=== PATIENT | female | born 1990 | race Hispanic/Latino ===

== ENCOUNTER 2020-04-21 21:01 | Emergency (ER) | payer MEDICAID, OTHER ==
[~2020-04-21 21:01] MED LIST: ACET1TAB12 PO; FERR-82 PO; PREN1TAB89 PO
[2020-04-21] MEDS ORDERED: SODIUM CHLORIDE 0.9% 1000ML 1,000 ML IV ONE (21:43)
[2020-04-21] MEDS ORDERED: KETOROLAC TROMETHAMINE 15MG/ML ONE (21:52)
== END 2020-04-21 23:15 | disposition home or self-care (01) ==
LOC: EDH 21:01
DX: U07.1 COVID-19 (principal); G44.209 Tension-type headache, unspecified, not intractable
CPT/HCPCS: 81025; 96374; 99283; J1885; J7030; U0003; 36415

== ENCOUNTER 2021-04-19 00:30 | Emergency (ER) | payer MEDICAID, OTHER ==
[~2021-04-19] VITALS: Ht 160 cm; Wt 99.8 kg
[2021-04-19 00:35] VITALS: BP 142/88
[2021-04-19] MEDS ORDERED: MELO7.5T12 PO (01:13)
[2021-04-19] MEDS ORDERED: CYCL10TA7 PO (01:13)
[2021-04-19] MEDS ORDERED: KETOROLAC 60 MG VIAL (30MG/ML) IM ONE (01:30)
== END 2021-04-19 01:52 | disposition home or self-care (01) ==
LOC: EDH 00:30
DX: G44.209 Tension-type headache, unspecified, not intractable (principal); M62.830 Muscle spasm of back; H92.03 Otalgia, bilateral; M54.2 Cervicalgia; D64.9 Anemia, unspecified; Z79.899 Other long term (current) drug therapy
CPT/HCPCS: 96372; J1885

== ENCOUNTER 2021-06-06 18:40 | Emergency (ER) | payer MEDICAID ==
[~2021-06-06] VITALS: Ht 165.1 cm; Wt 113.4 kg
[~2021-06-06 18:40] MED LIST changes: +CYCL10TA7 PO; +MELO7.5T12 PO
[2021-06-06] MEDS ORDERED: ACETAMINOPHEN WITH CODEINE 1 TAB TAB PO ONE (21:00)
[2021-06-06] MEDS ORDERED: CEFTRIAXONE 1G VIAL IM ONE (21:00)
[2021-06-06] MEDS ORDERED: LIDOCAINE HCL-MPF 1% 2ML VIAL ONE (21:03)
[2021-06-06] MEDS ORDERED: CORTSOL AD (21:41)
[2021-06-06] MEDS ORDERED: AMOX-429 PO (21:41)
[2021-06-06] MEDS ORDERED: IBUP-1552 PO (21:41)
[2021-06-06 22:01] VITALS: BP 149/100
== END 2021-06-06 22:12 | disposition home or self-care (01) ==
LOC: EDH 18:40
DX: H60.91 Unspecified otitis externa, right ear (principal); H66.91 Otitis media, unspecified, right ear; E66.01 Morbid (severe) obesity due to excess calories; Z79.1 Long term (current) use of non-steroidal anti-inflammatories (NSAID); Z88.1 Allergy status to other antibiotic agents; Z68.41 Body mass index [BMI] 40.0-44.9, adult
CPT/HCPCS: 82948; 96372; 99283; J0696; J3490

== ENCOUNTER 2021-10-03 14:46 | Emergency (ER) | payer MEDICAID ==
[~2021-10-03] VITALS: Ht 165.1 cm; Wt 131.5 kg
[~2021-10-03 14:46] MED LIST changes: +AMOX-429 PO; +CORTSOL AD; +CYCL-309 PO; -CYCL10TA7 PO; +IBUP-1552 PO
[2021-10-03 14:53] VITALS: BP 140/94
[2021-10-03] MEDS ORDERED: ACETAMINOPHEN WITH CODEINE 1 TAB TAB PO ONE (18:00)
[2021-10-03] MEDS ORDERED: SILVER SULFADIAZINE CREAM 400 GM TP SCH (18:00)
[2021-10-03] MEDS ORDERED: KETOROLAC 30MG VIAL (30MG/ML) IM ONE (18:00)
[2021-10-03] MEDS ORDERED: ACET1TAB25 PO (18:10)
[2021-10-03] MEDS ORDERED: MUPI15CR12 TP (18:10)
[2021-10-03] MEDS ORDERED: SILV20CR11 TP (18:10)
[2021-10-03] MEDS ORDERED: SILVER SULFADIAZINE CREAM 50 GM TP SCH (19:00)
== END 2021-10-03 18:55 | disposition home or self-care (01) ==
LOC: EDH 14:46
DX: T21.22XA Burn of second degree of abdominal wall, initial encounter (principal); T22.111A Burn of first degree of right forearm, initial encounter; T31.0 Burns involving less than 10% of body surface; E66.01 Morbid (severe) obesity due to excess calories; Z88.1 Allergy status to other antibiotic agents; Z79.1 Long term (current) use of non-steroidal anti-inflammatories (NSAID); Z68.42 Body mass index [BMI] 45.0-49.9, adult; X12.XXXA Contact with other hot fluids, initial encounter; Y93.G3 Activity, cooking and baking; Y92.89 Other specified places as the place of occurrence of the external cause; Y99.8 Other external cause status
CPT/HCPCS: 16020; 96372; 99283; J1885

== ENCOUNTER 2022-01-31 20:22 | Emergency (ER) | payer MEDICAID ==
[~2022-01-31] VITALS: Ht 165.1 cm; Wt 130.2 kg
[~2022-01-31 20:22] MED LIST changes: +ACET-2079 PO; +MUPI15CR12 TP; +SILV20CR11 TP
[2022-01-31 21:52] LABS: APPEARANCE,URINE Cloudy (CLEAR); BILIRUBIN,URINE Negative (NEGATIVE); COLOR,URINE Yellow (YELLOW); GLUCOSE, URINE (UA) Negative (NEGATIVE); KETONES,URINE Negative (NEGATIVE); LEUKOCYTE ESTERASE ,URINE Small (NEGATIVE); NITRATE,URINE Negative (NEGATIVE); OCCULT BLOOD,URINE Large (NEGATIVE); PH,URINE 5.5 (5.0-8.0); PROTEIN,URINE Negative (NEGATIVE); UROBILINOGEN,URINE 0.2 mg/dL (0.2-1.0)
[2022-01-31 21:57] LABS: HCG,QUAL RESULT NEGATIVE (NEGATIVE)
[2022-01-31] MEDS ORDERED: KETOROLAC 30MG VIAL (30MG/ML) IVP SCH (22:00)
[2022-01-31] MEDS ORDERED: 0.9% NACL 500ML IV.SOLN 500 ML IV SCH (22:00)
[2022-01-31] MEDS ORDERED: CYCLOBENZAPRINE HCL 10 MG TABLET PO SCH (22:00)
[2022-01-31] MEDS ORDERED: PROMETHAZINE HCL 25 MG/ML 1ML AMPULE IM SCH (22:00)
[2022-01-31 22:05] LABS: BACTERIA,URINE Few /HPF (None Seen); RBC,URINE None Seen /HPF (0-1)
[2022-01-31 22:06] LABS: AMORPHOUS SEDIMENT,UR Few /LPF (None Seen)
[2022-01-31 22:07] LABS: EOSINOPHILS % (AUTO) 1.9 % (0.0-8.0); LYMPHOCYTES % (AUTO) 28.5 % (21.0-51.0); MEAN CORPUSCULAR HEMOGLOBIN 25.2 pg (27.0-33.0); MEAN CORPUSCULAR HGB CONC 31.3 g/dL (32.0-36.0); MEAN CORPUSCULAR VOLUME 80.3 fL (79-99); MONOCYTES % (AUTO) 7.2 % (3.0-13.0); NEUTROPHILS % (AUTO) 61.2 % (40.0-77.0); PLATELET COUNT (AUTO) 192 K/uL (130-400); RED BLOOD CELL COUNT(AUTO) 4.73 MIL/uL (4.00-5.50); RED CELL DISTRIBUTION WIDTH 13.2 % (11.0-15.5); WHITE BLOOD COUNT (AUTO) 4.1 K/uL (4.8-10.8)
[2022-01-31 22:22] LABS: CREATININE 0.9 mg/dL (0.5-1.5); POTASSIUM 3.6 mmol/L (3.5-5.1)
[2022-01-31 22:28] LABS: ALBUMIN 3.5 g/dL (3.5-5.0); BILIRUBIN,TOTAL 0.2 mg/dL (0.2-1.0); TOTAL PROTEIN, SERUM 7.4 g/dL (6.0-8.3)
[2022-01-31 22:30] VITALS: BP 131/68
[2022-01-31] MEDS ORDERED: NAPR-1180 PO (22:46)
[2022-01-31] MEDS ORDERED: CYCL10TA16 PO (22:46)
[2022-01-31] MEDS ORDERED: POTASSIUM BICARB/CIT AC 25 MEQ TABLET.EFF PO ONE (23:00)
== END 2022-01-31 22:57 | disposition home or self-care (01) ==
LOC: EDH 20:22
DX: G44.209 Tension-type headache, unspecified, not intractable (principal); E66.9 Obesity, unspecified; Z68.42 Body mass index [BMI] 45.0-49.9, adult; Z88.8 Allergy status to other drugs, medicaments and biological substances; Z88.1 Allergy status to other antibiotic agents; Z79.899 Other long term (current) drug therapy; Z98.890 Other specified postprocedural states
CPT/HCPCS: 36415; 80053; 81001; 81025; 85025; 96372; 96374; 99284; J1885; J2550; J7040

== ENCOUNTER 2022-03-26 23:50 | Emergency (ER) | payer MEDICAID ==
[~2022-03-26] VITALS: Ht 165.1 cm; Wt 131.1 kg
[~2022-03-26 23:50] MED LIST changes: +CYCL10TA16 PO; +NAPR-1180 PO
[2022-03-27 01:05] VITALS: BP 141/71
[2022-03-27] MEDS ORDERED: NAPR500T6 PO (01:26)
[2022-03-27] MEDS ORDERED: KETOROLAC 60 MG VIAL (30MG/ML) IM ONE (01:30)
== END 2022-03-27 01:38 | disposition home or self-care (01) ==
LOC: EDH 23:50
DX: M94.0 Chondrocostal junction syndrome [Tietze] (principal); R07.89 Other chest pain; Z20.822 Contact with and (suspected) exposure to COVID-19; Z88.8 Allergy status to other drugs, medicaments and biological substances; Z88.1 Allergy status to other antibiotic agents; Z79.899 Other long term (current) drug therapy; Z98.890 Other specified postprocedural states
CPT/HCPCS: 87635; 87804 ×2; 93005; 96372; 99284; C9803; J1885

== ENCOUNTER 2022-04-16 22:37 | Emergency (ER) | payer MEDICAID ==
[~2022-04-16] VITALS: Ht 165.1 cm; Wt 129.3 kg
[~2022-04-16 22:37] MED LIST changes: +NAPR500T6 PO
[2022-04-16] MEDS ORDERED: PROMETHAZINE HCL 25 MG/ML 1ML AMPULE IVPB SCH (23:00)
[2022-04-16] MEDS ORDERED: KETOROLAC 30MG VIAL (30MG/ML) IVP ONE (23:00)
[2022-04-16] MEDS ORDERED: CYCLOBENZAPRINE HCL 10 MG TABLET PO ONE (23:00)
[2022-04-16] MEDS ORDERED: 0.9% NACL 500ML IV.SOLN 500 ML IV SCH (23:30)
[2022-04-16 23:32] LABS: APPEARANCE,URINE CLEAR (CLEAR); BILIRUBIN,URINE NEGATIVE (NEGATIVE); COLOR,URINE YELLOW (YELLOW); GLUCOSE, URINE (UA) NEGATIVE (NEGATIVE); KETONES,URINE NEGATIVE (NEGATIVE); LEUKOCYTE ESTERASE ,URINE NEGATIVE (NEGATIVE); NITRATE,URINE NEGATIVE (NEGATIVE); OCCULT BLOOD,URINE NEGATIVE (NEGATIVE); PH,URINE 5.5 (5.0-8.0); PROTEIN,URINE NEGATIVE (NEGATIVE); UROBILINOGEN,URINE 0.2 mg/dL (0.2-1.0)
[2022-04-16 23:32] LABS: BASOPHILS % (AUTO) 0.7 % (0.0-5.0); EOSINOPHILS % (AUTO) 1.3 % (0.0-8.0); HEMATOCRIT 38.5 % (36-48); LYMPHOCYTES % (AUTO) 24.6 % (21.0-51.0); MEAN CORPUSCULAR HEMOGLOBIN 24.6 pg (27.0-33.0); MEAN CORPUSCULAR HGB CONC 30.9 g/dL (32.0-36.0); MEAN CORPUSCULAR VOLUME 79.5 fL (79-99); MONOCYTES % (AUTO) 9.9 % (3.0-13.0); NEUTROPHILS % (AUTO) 63.1 % (40.0-77.0); PLATELET COUNT (AUTO) 154 K/uL (130-400); RED BLOOD CELL COUNT(AUTO) 4.84 MIL/uL (4.00-5.50); RED CELL DISTRIBUTION WIDTH 13.7 % (11.0-15.5); WHITE BLOOD COUNT (AUTO) 4.6 K/uL (4.8-10.8)
[2022-04-16 23:35] LABS: HCG,QUAL RESULT NEGATIVE (NEGATIVE)
[2022-04-16] MEDS ORDERED: CYCL10TA16 PO (23:38)
[2022-04-16] MEDS ORDERED: NAPR-1180 PO (23:38)
[2022-04-16 23:40] LABS: POTASSIUM 3.8 mmol/L (3.5-5.1)
[2022-04-16 23:45] LABS: ALBUMIN 3.7 g/dL (3.5-5.0); TOTAL PROTEIN, SERUM 7.3 g/dL (6.0-8.3)
[2022-04-17 00:42] VITALS: BP 159/89
== END 2022-04-17 00:45 | disposition home or self-care (01) ==
LOC: EDH 22:37
DX: G44.209 Tension-type headache, unspecified, not intractable (principal); R03.0 Elevated blood-pressure reading, without diagnosis of hypertension; E66.9 Obesity, unspecified; Z68.42 Body mass index [BMI] 45.0-49.9, adult; Z88.8 Allergy status to other drugs, medicaments and biological substances; Z88.1 Allergy status to other antibiotic agents; Z79.899 Other long term (current) drug therapy; Z98.890 Other specified postprocedural states
CPT/HCPCS: 99284; 96374; 96361; 96375; 80053; 85025; 81003; 81025; 36415; J7040; J2550; J1885

== ENCOUNTER 2022-05-05 00:53 | Emergency (ER) | payer MEDICAID ==
[~2022-05-05] VITALS: Ht 165.1 cm; Wt 128.8 kg
[2022-05-05 02:11] LABS: BASOPHILS % (AUTO) 0.9 % (0.0-5.0); EOSINOPHILS % (AUTO) 1.2 % (0.0-8.0); HEMATOCRIT 37.5 % (36-48); LYMPHOCYTES % (AUTO) 28.7 % (21.0-51.0); MEAN CORPUSCULAR HEMOGLOBIN 25.1 pg (27.0-33.0); MEAN CORPUSCULAR HGB CONC 31.7 g/dL (32.0-36.0); MEAN CORPUSCULAR VOLUME 78.9 fL (79-99); MONOCYTES % (AUTO) 9.2 % (3.0-13.0); NEUTROPHILS % (AUTO) 59.8 % (40.0-77.0); PLATELET COUNT (AUTO) 177 K/uL (130-400); RED BLOOD CELL COUNT(AUTO) 4.75 MIL/uL (4.00-5.50); RED CELL DISTRIBUTION WIDTH 13.5 % (11.0-15.5); WHITE BLOOD COUNT (AUTO) 4.2 K/uL (4.8-10.8)
[2022-05-05 02:22] LABS: POTASSIUM 3.7 mmol/L (3.5-5.1)
[2022-05-05 02:27] LABS: ALBUMIN 3.9 g/dL (3.5-5.0); TOTAL PROTEIN, SERUM 7.5 g/dL (6.0-8.3)
[2022-05-05] MEDS ORDERED: KETOROLAC 15MG/ML VIAL (15MG/ML) IV ONE (02:30)
[2022-05-05] MEDS ORDERED: DiphenhydrAMINE HCL 25 MG/10 ML ELIXIR UDCUP PO ONE (02:30)
[2022-05-05] MEDS ORDERED: PROCHLORPERAZINE 10MG/2ML INJ IV ONE (02:30)
[2022-05-05] MEDS ORDERED: LISI10TA24 PO (02:51)
[2022-05-05] MEDS ORDERED: FIORIT PO (02:51)
[2022-05-05 03:00] VITALS: BP 156/102
== END 2022-05-05 03:25 | disposition home or self-care (01) ==
LOC: EDH 00:53
DX: G44.209 Tension-type headache, unspecified, not intractable (principal); R03.0 Elevated blood-pressure reading, without diagnosis of hypertension; R11.2 Nausea with vomiting, unspecified; Z20.822 Contact with and (suspected) exposure to COVID-19; E66.01 Morbid (severe) obesity due to excess calories; Z68.42 Body mass index [BMI] 45.0-49.9, adult; Z88.1 Allergy status to other antibiotic agents; Z79.1 Long term (current) use of non-steroidal anti-inflammatories (NSAID)
CPT/HCPCS: 99284; 96374; 87635; 96375; 84484; 80053; 85025; 87804 ×2; 81025; 36415; 93005; C9803; J0780; J1885

== ENCOUNTER 2022-05-15 10:34 | Emergency (ER) | payer MEDICAID ==
[~2022-05-15] VITALS: Ht 165.1 cm; Wt 127.0 kg
[~2022-05-15 10:34] MED LIST changes: +FIORIT PO; +LISI10TA24 PO
[2022-05-15 10:38] VITALS: BP 105/67
[2022-05-15] MEDS ORDERED: ACETAMINOPHEN 500 MG TABLET ONE (11:42)
[2022-05-15] MEDS ORDERED: ALBUTEROL INHALER 90MCG/INH IH ONE ×2 (11:42→12:00)
[2022-05-15] MEDS ORDERED: GUAIFENESIN-CODEINE 5 ML SYRUP ONE (11:43)
[2022-05-15] MEDS ORDERED: ALBU8.5H8 IH (11:50)
[2022-05-15] MEDS ORDERED: D-ME1POW16 PO (11:50)
[2022-05-15] MEDS ORDERED: GUAIFENESIN-CODEINE 5 ML SYRUP PO ONE (12:00)
[2022-05-15] MEDS ORDERED: ACETAMINOPHEN 500 MG TABLET PO ONE (12:00)
[2022-05-17] MEDS ORDERED: IBUP-2070 PO (06:31)
== END 2022-05-15 12:02 | disposition home or self-care (01) ==
LOC: EDH 10:34
DX: U07.1 COVID-19 (principal); J06.9 Acute upper respiratory infection, unspecified; I10 Essential (primary) hypertension; E66.01 Morbid (severe) obesity due to excess calories; Z88.1 Allergy status to other antibiotic agents; Z79.1 Long term (current) use of non-steroidal anti-inflammatories (NSAID); Z79.899 Other long term (current) drug therapy; Z68.42 Body mass index [BMI] 45.0-49.9, adult
CPT/HCPCS: 99283; 87635; 87880; 87804 ×2; C9803

== ENCOUNTER 2022-08-28 23:29 | Emergency (ER) | payer MEDICAID ==
[~2022-08-28] VITALS: Ht 165.1 cm; Wt 131.5 kg
[~2022-08-28 23:29] MED LIST changes: +ALBU8.5H8 IH; +D-ME1POW16 PO; +IBUP-2070 PO
[2022-08-29] LABS: APPEARANCE,URINE CLOUDY (CLEAR); BILIRUBIN,URINE 0.5 mg/dL (NEGATIVE); COLOR,URINE YELLOW (YELLOW); GLUCOSE, URINE (UA) NEGATIVE (NEGATIVE); KETONES,URINE 20 mg/dL (NEGATIVE); LEUKOCYTE ESTERASE ,URINE 500 Leu/uL (NEGATIVE); NITRATE,URINE NEGATIVE (NEGATIVE); OCCULT BLOOD,URINE LARGE (NEGATIVE); PH,URINE 5.5 (5.0-8.0); PROTEIN,URINE 50 mg/dL (NEGATIVE); UROBILINOGEN,URINE >=8.0 mg/dL (0.2-1.0)
[2022-08-29 00:07] LABS: BACTERIA,URINE FEW /HPF (None Seen); MUCUS,URINE RARE LPF (None Seen); RBC,URINE TNTC /HPF (0-1); SQUAMOUS EPITHELIAL CELL,UR FEW /HPF (0-2); WBC,URINE 51-100 /HPF (0-1)
[2022-08-29 00:33] LABS: BASOPHILS % (AUTO) 0.2 % (0.0-5.0); EOSINOPHILS % (AUTO) 0.1 % (0.0-8.0); HEMATOCRIT 36.8 % (36-48); LYMPHOCYTES % (AUTO) 5.1 % (21.0-51.0); MEAN CORPUSCULAR HEMOGLOBIN 25.4 pg (27.0-33.0); MEAN CORPUSCULAR HGB CONC 31.8 g/dL (32.0-36.0); MEAN CORPUSCULAR VOLUME 79.8 fL (79-99); MONOCYTES % (AUTO) 6.6 % (3.0-13.0); NEUTROPHILS % (AUTO) 87.4 % (40.0-77.0); PLATELET COUNT (AUTO) 165 K/uL (130-400); RED BLOOD CELL COUNT(AUTO) 4.61 MIL/uL (4.00-5.50); RED CELL DISTRIBUTION WIDTH 13.5 % (11.0-15.5); WHITE BLOOD COUNT (AUTO) 8.4 K/uL (4.8-10.8)
[2022-08-29 00:43] LABS: CREATININE 1.3 mg/dL (0.5-1.5); POTASSIUM 3.6 mmol/L (3.5-5.1)
[2022-08-29 00:48] LABS: ALBUMIN 3.4 g/dL (3.5-5.0)
[2022-08-29] MEDS ORDERED: ACETAMINOPHEN 500 MG TABLET PO ONE (01:00)
[2022-08-29] MEDS ORDERED: CEFU500T67 PO (01:50)
[2022-08-29] MEDS ORDERED: IBUP-1493 PO (01:50)
[2022-08-29 01:51] VITALS: BP 125/73
[2022-08-29] MEDS ORDERED: CEFTRIAXONE 1G VIAL IVP ONE (02:00)
== END 2022-08-29 02:23 | disposition home or self-care (01) ==
LOC: EDH 23:29
DX: N39.0 Urinary tract infection, site not specified (principal); Z20.822 Contact with and (suspected) exposure to COVID-19; I10 Essential (primary) hypertension; E66.01 Morbid (severe) obesity due to excess calories; Z68.42 Body mass index [BMI] 45.0-49.9, adult; Z98.890 Other specified postprocedural states; Z88.8 Allergy status to other drugs, medicaments and biological substances; Z88.1 Allergy status to other antibiotic agents; Z79.899 Other long term (current) drug therapy
CPT/HCPCS: 99283; 87635; 80053; 85025; 87077; 87088; 87186; 87804 ×2; 81001; 81025; 36415; 96374; C9803; J0696

== ENCOUNTER 2022-12-16 20:57 | Emergency (ER) | payer MEDICAID ==
[~2022-12-16] VITALS: Ht 165.1 cm; Wt 127.0 kg
[~2022-12-16 20:57] MED LIST changes: +CEFU500T67 PO; +IBUP-1493 PO
[2022-12-16] MEDS ORDERED: 0.9%NACL 1000ML 1,000 ML IV ONE (21:30)
[2022-12-16] MEDS ORDERED: ONDANSETRON 4MG INJ IVP ONE (21:30)
[2022-12-16 22:28] VITALS: BP 140/85
[2022-12-16] MEDS ORDERED: ONDANSETRON 4MG INJ ONE (22:50)
[2022-12-16 23:28] LABS: BASOPHILS % (AUTO) 0.5 % (0.0-5.0); EOSINOPHILS % (AUTO) 1.8 % (0.0-8.0); HEMATOCRIT 37.5 % (36-48); LYMPHOCYTES % (AUTO) 13.9 % (21.0-51.0); MEAN CORPUSCULAR HEMOGLOBIN 25.3 pg (27.0-33.0); MEAN CORPUSCULAR HGB CONC 31.2 g/dL (32.0-36.0); MONOCYTES % (AUTO) 6.4 % (3.0-13.0); NEUTROPHILS % (AUTO) 76.7 % (40.0-77.0); PLATELET COUNT (AUTO) 182 K/uL (130-400); RED BLOOD CELL COUNT(AUTO) 4.63 MIL/uL (4.00-5.50); RED CELL DISTRIBUTION WIDTH 13.5 % (11.0-15.5); WHITE BLOOD COUNT (AUTO) 5.6 K/uL (4.8-10.8)
[2022-12-16 23:39] LABS: APPEARANCE,URINE CLEAR (CLEAR); BILIRUBIN,URINE NEGATIVE (NEGATIVE); COLOR,URINE LIGHT-YELLOW (YELLOW); GLUCOSE, URINE (UA) NEGATIVE (NEGATIVE); KETONES,URINE NEGATIVE (NEGATIVE); LEUKOCYTE ESTERASE ,URINE 25 Leu/uL (NEGATIVE); NITRATE,URINE NEGATIVE (NEGATIVE); OCCULT BLOOD,URINE NEGATIVE (NEGATIVE); PH,URINE 5.5 (5.0-8.0); PROTEIN,URINE NEGATIVE (NEGATIVE); UROBILINOGEN,URINE 0.2 mg/dL (0.2-1.0)
[2022-12-16 23:41] LABS: HCG,QUALITATIVE URINE NEGATIVE (NEGATIVE)
[2022-12-16 23:42] LABS: MUCUS,URINE RARE LPF (None Seen); RBC,URINE 0-1 /HPF (0-1); SQUAMOUS EPITHELIAL CELL,UR MOD /HPF (0-2)
[2022-12-16 23:52] LABS: CREATININE 1.1 mg/dL (0.5-1.5); POTASSIUM 3.4 mmol/L (3.5-5.1)
[2022-12-16 23:54] LABS: ALBUMIN 3.7 g/dL (3.5-5.0); TOTAL PROTEIN, SERUM 7.5 g/dL (6.0-8.3)
[2022-12-17] MEDS ORDERED: CEPH500B PO (00:31)
== END 2022-12-17 01:04 | disposition home or self-care (01) ==
LOC: EDH 20:57
DX: N39.0 Urinary tract infection, site not specified (principal); I10 Essential (primary) hypertension; E66.01 Morbid (severe) obesity due to excess calories; Z68.42 Body mass index [BMI] 45.0-49.9, adult; Z20.822 Contact with and (suspected) exposure to COVID-19
CPT/HCPCS: 99283; 96374; 87635; 96361; 80053; 83690; 85025; 87880; 87804 ×2; 81001; 81025; 36415; C9803; J7030; J2405

== ENCOUNTER 2022-12-18 20:42 | Emergency (ER) | payer MEDICAID ==
[~2022-12-18] VITALS: Ht 165.1 cm; Wt 127.0 kg
[~2022-12-18 20:42] MED LIST changes: +CEPH500B PO
[2022-12-18] MEDS ORDERED: CYCLOBENZAPRINE HCL 10 MG TABLET PO ONE (23:00)
[2022-12-18] MEDS ORDERED: KETOROLAC 30MG VIAL (30MG/ML) IM ONE (23:00)
[2022-12-18 23:58] LABS: APPEARANCE,URINE CLOUDY (CLEAR); BILIRUBIN,URINE NEGATIVE (NEGATIVE); COLOR,URINE YELLOW (YELLOW); GLUCOSE, URINE (UA) NEGATIVE (NEGATIVE); KETONES,URINE NEGATIVE (NEGATIVE); LEUKOCYTE ESTERASE ,URINE 500 Leu/uL (NEGATIVE); NITRATE,URINE NEGATIVE (NEGATIVE); OCCULT BLOOD,URINE NEGATIVE (NEGATIVE); PH,URINE 5.5 (5.0-8.0); PROTEIN,URINE 20 mg/dL (NEGATIVE)
[2022-12-19 00:01] LABS: HCG,QUALITATIVE URINE NEGATIVE (NEGATIVE)
[2022-12-19 00:04] LABS: BACTERIA,URINE FEW /HPF (None Seen); MUCUS,URINE FEW LPF (None Seen); SQUAMOUS EPITHELIAL CELL,UR MANY /HPF (0-2)
[2022-12-19] MEDS ORDERED: CYCL10TA16 PO (00:47)
[2022-12-19 01:08] VITALS: BP 120/62
== END 2022-12-19 01:10 | disposition home or self-care (01) ==
LOC: EDH 20:42
DX: N39.0 Urinary tract infection, site not specified (principal); G44.209 Tension-type headache, unspecified, not intractable; I10 Essential (primary) hypertension; E66.01 Morbid (severe) obesity due to excess calories; Z20.822 Contact with and (suspected) exposure to COVID-19; Z68.42 Body mass index [BMI] 45.0-49.9, adult; Z79.899 Other long term (current) drug therapy; Z88.8 Allergy status to other drugs, medicaments and biological substances
CPT/HCPCS: 99283; 87635; 87088; 87804 ×2; 81001; 81025; 96372; C9803; J1885

== ENCOUNTER 2023-01-22 17:52 | Emergency (ER) | payer MEDICAID | END 2023-01-22 19:43 | disposition left against medical advice (07) | LOC: EDH 17:52 | DX: H92.02 Otalgia, left ear (principal); Z53.21 Procedure and treatment not carried out due to patient leaving prior to being seen by health care provider ==

== ENCOUNTER 2023-01-24 14:27 | Emergency (ER) | payer MEDICAID ==
[~2023-01-24] VITALS: Ht 165.1 cm; Wt 127.0 kg
[2023-01-24 14:28] VITALS: BP 121/77
[2023-01-24] MEDS ORDERED: AMOX500C2 PO (16:55)
[2023-01-24] MEDS ORDERED: KETOROLAC 30MG VIAL (30MG/ML) IM ONE (17:00)
[2023-01-24] MEDS ORDERED: AMOXICILLIN 500 MG CAPSULE PO ONE (17:00)
== END 2023-01-24 17:20 | disposition home or self-care (01) ==
LOC: EDH 14:27
DX: K04.7 Periapical abscess without sinus (principal); I10 Essential (primary) hypertension; E66.01 Morbid (severe) obesity due to excess calories; Z79.1 Long term (current) use of non-steroidal anti-inflammatories (NSAID); Z79.899 Other long term (current) drug therapy; Z88.1 Allergy status to other antibiotic agents; Z68.42 Body mass index [BMI] 45.0-49.9, adult
CPT/HCPCS: 99283; 96372; J1885

== ENCOUNTER 2023-03-12 12:18 | Emergency (ER) | payer MEDICAID ==
[~2023-03-12] VITALS: Ht 165.1 cm; Wt 127.5 kg
[~2023-03-12 12:18] MED LIST changes: +AMOX500C2 PO
[2023-03-12 12:41] VITALS: BP 105/69
[2023-03-12 12:57] LABS: APPEARANCE,URINE CLOUDY (CLEAR); BILIRUBIN,URINE NEGATIVE (NEGATIVE); COLOR,URINE LIGHT-YELLOW (YELLOW); GLUCOSE, URINE (UA) NEGATIVE (NEGATIVE); KETONES,URINE NEGATIVE (NEGATIVE); LEUKOCYTE ESTERASE ,URINE 500 Leu/uL (NEGATIVE); NITRATE,URINE NEGATIVE (NEGATIVE); OCCULT BLOOD,URINE NEGATIVE (NEGATIVE); PH,URINE 5.5 (5.0-8.0); PROTEIN,URINE NEGATIVE (NEGATIVE); UROBILINOGEN,URINE 0.2 mg/dL (0.2-1.0)
[2023-03-12 13:06] LABS: HCG,QUALITATIVE URINE NEGATIVE (NEGATIVE)
[2023-03-12 13:11] LABS: BASOPHILS % (AUTO) 0.9 % (0.0-5.0); LYMPHOCYTES % (AUTO) 19.6 % (21.0-51.0); MEAN CORPUSCULAR HEMOGLOBIN 24.8 pg (27.0-33.0); MEAN CORPUSCULAR HGB CONC 31.1 g/dL (32.0-36.0); MEAN CORPUSCULAR VOLUME 79.6 fL (79-99); MONOCYTES % (AUTO) 9.2 % (3.0-13.0); NEUTROPHILS % (AUTO) 67.9 % (40.0-77.0); PLATELET COUNT (AUTO) 194 K/uL (130-400); RED BLOOD CELL COUNT(AUTO) 4.52 MIL/uL (4.00-5.50); RED CELL DISTRIBUTION WIDTH 13.7 % (11.0-15.5); WHITE BLOOD COUNT (AUTO) 5.4 K/uL (4.8-10.8)
[2023-03-12 13:16] LABS: CREATININE 1.1 mg/dL (0.5-1.5); POTASSIUM 3.3 mmol/L (3.5-5.1)
[2023-03-12 13:17] LABS: BACTERIA,URINE RARE /HPF (None Seen); MUCUS,URINE RARE LPF (None Seen); SQUAMOUS EPITHELIAL CELL,UR MOD /HPF (0-2); TRANSITIONAL EPI CELLS,URINE RARE /HPF (None Seen); WBC,URINE 26-50 /HPF (0-1)
[2023-03-12 13:25] LABS: ALBUMIN 3.9 g/dL (3.5-5.0); TOTAL PROTEIN, SERUM 7.5 g/dL (6.0-8.3)
[2023-03-12] MEDS ORDERED: SULF1TAB42 PO (13:49)
[2023-03-12] MEDS ORDERED: POTASSIUM CHLORIDE 10% ELIXIR 20 MEQ/15 ML UDCUP PO ONE (14:00)
== END 2023-03-12 14:11 | disposition home or self-care (01) ==
LOC: EDH 12:18
DX: N39.0 Urinary tract infection, site not specified (principal); G44.209 Tension-type headache, unspecified, not intractable; I10 Essential (primary) hypertension; E66.01 Morbid (severe) obesity due to excess calories; Z79.1 Long term (current) use of non-steroidal anti-inflammatories (NSAID); Z79.899 Other long term (current) drug therapy; Z88.1 Allergy status to other antibiotic agents; Z68.42 Body mass index [BMI] 45.0-49.9, adult
CPT/HCPCS: 36415; 70450; 80053; 81001; 81025; 85025

== ENCOUNTER 2023-05-07 12:54 | Emergency (ER) | payer MEDICAID ==
[~2023-05-07] VITALS: Ht 165.1 cm; Wt 127.0 kg
[~2023-05-07 12:54] MED LIST changes: +SULF1TAB42 PO
[2023-05-07 13:10] VITALS: PULSE 78; RESP 18
[2023-05-07 13:14] VITALS: BP 104/56; O2SAT 99
[2023-05-07 14:19] LABS: RAPID GROUP A STREP negative (NEGATIVE)
[2023-05-07 14:20] LABS: APPEARANCE,URINE CLEAR (CLEAR); BILIRUBIN,URINE NEGATIVE (NEGATIVE); COLOR,URINE LIGHT-YELLOW (YELLOW); GLUCOSE, URINE (UA) NEGATIVE (NEGATIVE); KETONES,URINE NEGATIVE (NEGATIVE); LEUKOCYTE ESTERASE ,URINE 250 Leu/uL (NEGATIVE); NITRATE,URINE NEGATIVE (NEGATIVE); OCCULT BLOOD,URINE NEGATIVE (NEGATIVE); PROTEIN,URINE NEGATIVE (NEGATIVE); UROBILINOGEN,URINE 0.2 mg/dL (0.2-1.0)
[2023-05-07 14:28] LABS: INFLUENZA TYPE A Negative For Type A (NEGATIVE); INFLUENZA TYPE B Negative For Type B (NEGATIVE)
[2023-05-07 14:29] LABS: HCG,QUALITATIVE URINE NEGATIVE (NEGATIVE)
[2023-05-07 14:31] LABS: ADD UA MICROSCOPIC YES
[2023-05-07 14:36] LABS: SARS-CoV-2, RNA, NAAT NEGATIVE SARS CoV-2 (NEGATIVE)
[2023-05-07 14:38] LABS: MUCUS,URINE RARE LPF (None Seen); SQUAMOUS EPITHELIAL CELL,UR FEW /HPF (0-2)
[2023-05-07] MEDS ORDERED: LORA10TA7 PO (14:38)
[2023-05-07] MEDS ORDERED: CEPH500B PO (14:38)
[2023-05-07] MEDS ORDERED: FLUT16H NASAL (14:38)
[2023-05-07] MEDS ORDERED: IBUPROFEN 600 MG TABLET PO ONE (15:00)
[2023-05-07] MEDS ORDERED: DEXAMETHASONE SOD PHOSPHATE 4 MG/ML 1ML VIAL IM ONE (15:00)
== END 2023-05-07 15:13 | disposition home or self-care (01) ==
LOC: EDH 12:54
DX: R51.9 Headache, unspecified (principal); N39.0 Urinary tract infection, site not specified; I10 Essential (primary) hypertension; E66.01 Morbid (severe) obesity due to excess calories; Z79.1 Long term (current) use of non-steroidal anti-inflammatories (NSAID); Z79.52 Long term (current) use of systemic steroids; Z79.899 Other long term (current) drug therapy; Z88.1 Allergy status to other antibiotic agents; Z68.42 Body mass index [BMI] 45.0-49.9, adult; Z20.822 Contact with and (suspected) exposure to COVID-19
CPT/HCPCS: 99283; 87635; 87088; 87880; 87804 ×2; 81001; 81025; J1100; C9803

== ENCOUNTER 2023-12-21 21:21 | Emergency (ER) | payer MEDICAID ==
[~2023-12-21] VITALS: Ht 165.1 cm; Wt 130.7 kg
[~2023-12-21 21:21] MED LIST changes: +FLUT16H NASAL; +LORA10TA7 PO
[2023-12-21 22:06] LABS: RAPID GROUP A STREP negative (NEGATIVE)
[2023-12-21 22:13] LABS: SARS-CoV-2, RNA, NAAT NEGATIVE SARS CoV-2 (NEGATIVE)
[2023-12-21 22:16] LABS: INFLUENZA TYPE A Negative For Type A (NEGATIVE); INFLUENZA TYPE B Negative For Type B (NEGATIVE)
[2023-12-22 00:15] VITALS: BP 128/80; PULSE 89; RESP 22; O2SAT 100
[2023-12-22 01:10] LABS: APPEARANCE,URINE CLOUDY (CLEAR); BILIRUBIN,URINE NEGATIVE (NEGATIVE); COLOR,URINE YELLOW (YELLOW); GLUCOSE, URINE (UA) NEGATIVE (NEGATIVE); KETONES,URINE NEGATIVE (NEGATIVE); LEUKOCYTE ESTERASE ,URINE 250 Leu/uL (NEGATIVE); NITRATE,URINE NEGATIVE (NEGATIVE); OCCULT BLOOD,URINE MODERATE (NEGATIVE); PH,URINE 5.5 (5.0-8.0); PROTEIN,URINE 30 mg/dL (NEGATIVE); UROBILINOGEN,URINE 0.2 mg/dL (0.2-1.0)
[2023-12-22 01:12] LABS: ADD UA MICROSCOPIC YES
[2023-12-22] MEDS ORDERED: MACR100 PO (01:17)
[2023-12-22 01:19] LABS: HCG,QUALITATIVE URINE NEGATIVE (NEGATIVE)
[2023-12-22 01:20] LABS: BACTERIA,URINE FEW /HPF (None Seen); MUCUS,URINE RARE LPF (None Seen); RBC,URINE 0-1 /HPF (0-1); SQUAMOUS EPITHELIAL CELL,UR MANY /HPF (0-2)
== END 2023-12-22 01:20 | disposition home or self-care (01) ==
LOC: EDH 21:21
DX: B34.9 Viral infection, unspecified (principal); E66.01 Morbid (severe) obesity due to excess calories; I10 Essential (primary) hypertension; Z79.1 Long term (current) use of non-steroidal anti-inflammatories (NSAID); Z79.899 Other long term (current) drug therapy; Z88.1 Allergy status to other antibiotic agents; Z20.822 Contact with and (suspected) exposure to COVID-19; Z68.42 Body mass index [BMI] 45.0-49.9, adult
CPT/HCPCS: 81001; 81025; 87088; 87635; 87804; 87880

== ENCOUNTER 2024-10-30 03:48 | Emergency (ER) | payer MEDICAID ==
[~2024-10-30] VITALS: Ht 165.1 cm; Wt 123.4 kg
[~2024-10-30 03:48] MED LIST changes: +MACR100 PO; +NAPR-1506 PO; -NAPR500T6 PO
[2024-10-30 03:49] VITALS: TEMP 97.3
--- NOTE | 2024-10-30 04:27 | NUR ---
PT BROUGHT BACK INTO RM 15 AT THIS TIME.
[2024-10-30 04:36] VITALS: BP 115/53; PULSE 67; RESP 18; O2SAT 99
[2024-10-30] MEDS: LIDOCAINE HCL 1% 20 ML VIAL INJ SCH (04:59)
--- NOTE | 2024-10-30 04:59 | NUR ---
2 SUTURES PLACED ON EXTERNAL HEMORRHOID BY NINI HE.
[2024-10-30] MEDS ORDERED: CEPH500B PO (05:03)
[2024-10-30] MEDS ORDERED: LACT10SO85 PO (05:03)
--- NOTE | 2024-10-30 05:05 | ERN ---
General Chief Complaint: Hemorrhoids Stated Complaint: RECTAL PAIN Time Seen by MD: 03:56 Source: patient History of Present Illness Initial Comments Patient is a 34-year-old female coming in to be evaluated for rectal pain. Patient states that she has a history of hemorrhoids and two months ago she started having some discomfort in that area. She states that she remembers the hemorrhoid bleeding she started but he medication but two days ago it started getting worse. No fever no chills. Allergies: Coded Allergies: doxycycline (Unverified Allergy, Unknown, 06/06/21) levofloxacin (Unverified Allergy, Unknown, 06/06/21) Home Meds Active Scripts Nitrofurantoin/Nitrofuran Mac (Macrobid) 100 Mg Cap, 1 CAP PO BID for 7 Days, #14 CAP 0 Refills Prov:LAILA MATHEWS MD 12/22/23 Loratadine (Loratadine) 10 Mg Tablet, 10 MG PO DAILY, #7 TAB Prov:KATE CRESPOP 05/07/23 Fluticasone Propionate (Flonase Nasal [place]) 50 Mcg/[place], 50 MCG NASAL DAILY PRN for NASAL CONGESTION for 10 Days, #1 SPRAY Prov:KATE CRESPOP 05/07/23 Cephalexin Monohydrate (Keflex) 500 Mg Cap, 500 MG PO QID for 7 Days, #28 CAP Prov:KATE CRESPO 05/07/23 Sulfamethoxazole/Trimethoprim (Bactrim Ds Tablet) 1 Each Tablet, 1 TAB PO BID for 7 Days, #14 TAB 0 Refills Prov:KATE CRESPOP 04/24/23 Sulfamethoxazole/Trimethoprim (Bactrim Ds Tablet) 1 Each Tablet, 1 TAB PO BID for 7 Days, #14 TAB 0 Refills Prov:JUAN ROJAS MD 03/12/23 Amoxicillin (Amoxicillin) 500 Mg Capsule, 500 MG PO TID for TOOTH INFECTION for 10 Days, #30 CAP 0 Refills Prov:ROSA ULRICH DNP 01/24/23 Cyclobenzaprine HCl (Flexeril) 10 Mg Tab, 10 MG PO TID for 3 Days, #9 TAB Prov:KATE CRESPOP 12/19/22 Cephalexin Monohydrate (Keflex) 500 Mg Cap, 500 MG PO QID for 7 Days, #28 CAP Prov:KATE CRESPO 12/17/22 Ibuprofen (Motrin/Advil) 800 Mg Tab, 800 MG PO TID, #30 TAB Prov:LAILA MATHEWS MD 08/29/22 Cefuroxime Axetil (Cefuroxime) 500 Mg Tablet, 500 MG PO BID, #20 TAB Prov:LAILA MATHEWS MD 08/29/22 Ibuprofen (Ibuprofen) 600 Mg Tablet, 600 MG PO Q6H PRN for PAIN, #30 TAB Prov:BROOKS OLIVAREZ MD 05/17/22 Albuterol Sulfate (Proair Hfa) 8.5 Gm Hfa.aer.ad, 2 PUFF IH QIDP, #1 INHALER Prov:YOUNG HANSON 05/15/22 D-Methorphan/PE/Acetaminophen (Theraflu Ms Severe Cold Pckt) 1 Each Powd.pack, 1 EACH PO QIDP, #20 PACK Prov:YOUNG HANSON 05/15/22 Butalb/Acetaminophen/Caffeine (Fioricet) 1 Tab Tab, 1 TAB PO QID for headache, #30 TAB Prov:BROOKS OLIVAREZ MD 05/05/22 Lisinopril (Lisinopril) 10 Mg Tablet, 10 MG PO DAILY, #30 TAB Prov:BROOKS OLIVAREZ MD 05/05/22 Cyclobenzaprine HCl (Flexeril) 10 Mg Tab, 10 MG PO BID, #30 TAB Prov:YOUNG HANSON 04/16/22 Naproxen (Naprosyn) 500 Mg Tablet, 500 MG PO BIDPC, #60 TAB Prov:YOUNG HANSON 04/16/22 Naproxen (Naproxen) 500 Mg Tablet.dr, 500 MG PO BIDPC, #30 TAB Prov:BROOKS OLIVAREZ MD 03/27/22 Cyclobenzaprine HCl (Flexeril) 10 Mg Tab, 10 MG PO BID, #30 TAB Prov:YOUNG HANSON 01/31/22 Naproxen (Naprosyn) 500 Mg Tablet, 500 MG PO BIDPC, #60 TAB Prov:YOUNG HANSON 01/31/22 Silver Sulfadiazine (Silvadene) 20 Gm Cream..g., 2 GM TP TID for burn for 5 Days, #33 GR Prov:DEVON GODDARD NP 10/03/21 Acetaminophen with Codeine (Acetaminophen-Cod #3 Tablet) 1 Each Tablet, 1 EACH PO TID for burn for 5 Days, #10 TAB Prov:DEVON GODDARD NP 10/03/21 Mupirocin Calcium (Mupirocin) 15 Gm Cream..g., 15 GM TP TID for 10 Days, #32 GR Prov:DEVON GODDARD NP 10/03/21 Ibuprofen (Ibu) 400 Mg Tablet, 800 MG PO TIDAC, #60 TAB Prov:YOUNG HANSON 06/06/21 Neomy Sulf/Polymyx B Sulf/Hc (Cortisporin Otic Soln) 20 Drop/Ml Otsol, 3 DROP AD QIDP, #10 ML Prov:YOUNG HANSON 06/06/21 Amoxicillin/Potassium Clav (Augmentin 875-125 Tablet) 1 Each Tablet, 1 TAB PO BID for 10 Days, #20 TAB 0 Refills Prov:YOUNG HANSON 06/06/21 Meloxicam (Mobic) 7.5 Mg Tablet, 7.5 MG PO DAILY, #10 TAB 0 Refills Prov:SAMARIA KELLER MD 04/19/21 Cyclobenzaprine HCl (Cyclobenzaprine HCl) 10 Mg Tablet, 10 MG PO TIDP, #20 TAB 0 Refills Prov:SAMARIA KELLER MD 04/19/21 Reported Medications Acetaminophen with Codeine (Tylenol with Codeine #3 Tablet) 1 Each Tablet, 1 TAB PO Q6-8 PRN for PAIN LEVEL 5 TO 10, #20 TAB 07/14/16 Ferrous Sulfate (Iron) 325 Mg Tablet, 325 MG PO DAILY, TAB 06/12/16 Vit W-Ca,Fe,FA(<1 mg) ( Vitamins) 1 Each Tablet, 1 EACH PO DAILY, TAB 06/12/16 Past Medical History Past Medical History: Hypertension Medical History Other: Morbid obese, HEMORRHOIDS Past Surgical History: Family History Family History: Negative Social History Social History: Negative, Lives with family Female( History) History: Not Applicable LMP: Sep 29, 2024 : 4 Para: 4 Aborts: 0 ROS Dictation CONSTITUTIONAL: No chills, no fever, no weakness, no diaphoresis, no malaise. HEAD/FACE: No signs of trauma. EENT: No eye pain, no blurred vision, no tearing, no double vision, no ear pain, no ear discharge, no nose pain, no nasal congestion, no throat pain, no throat swelling, no mouth pain. RESPIRATORY: No cough, no orthopnea, no SOB, no stridor, no wheezing. CARDIOVASCULAR: No chest pain, no edema, no palpitations, no syncope. GASTROINTESTINAL/ABDOMINAL: No abdominal pain, no constipation, no diarrhea, no nausea, no vomiting. GENITOURINARY: No abnormal discharge, no dysuria, no frequent urination, no hematuria. complaints of pain in the genitals. MUSCULOSKELETAL: No back pain, no gout, no joint pain, no joint swelling, no muscle pain, no muscle stiffness, no neck pain. INTEGUMENTARY: No change in color, no change in hair/nails, no dryness, no lesion, no lumps, no rash. NEUROLOGICAL/PSYCH: No anxiety, not depressed, no emotional problem, no headache, no numbness, no pre-existing deficit, no history of seizures, no tremors, no weakness. HEMATOLOGIC/LYMPHATIC: Not anemic, no history of blood clots, no apparent bleeding, no bruising, glands not swollen. All Systems Negative, Except as Noted. Physical Exam Physical Exam Dictation VITAL SIGNS: Reviewed. GENERAL APPEARANCE: Alert, oriented x3, no acute distress, obese. HEAD AND FACE: Non-traumatic. EYES: PERRL, pink conjunctivas, eyelid no trauma, anterior chamber clear. EARS: Pinnas intact and no signs of trauma or erythema. Ear canals clear and no discharge. TMs no erythema. NOSE: No discharge, no bleeding. OROPHARYNX: Mouth normal, teeth no caries, tongue pink. Pharynx clear, no erythema. Tonsils no exudates, no abscesses noted. Mucous membrane moist. NECK: Supple, non-tender, no thyromegaly, no masses, no JVD, no bruits. BREAST: Deferred. CHEST: No tenderness, no crepitus, no paradoxical movement, no retractions. LUNGS: Clear, well-ventilated, symmetric, no rales, no wheezing, no rhonchi, no stridor, good breath sounds bilaterally. HEART: Regular rate, regular rhythm, no murmur, no gallops. VASCULAR: No peripheral edema. ABDOMEN: Soft, positive bowel sounds, nondistended, no guarding, nontender, no rebound, no masses no hepatomegaly, no splenomegaly, no Fine's sign, no hernias. RECTAL: External hemorrhoid on 6:00 a.m. region, thrombosed with fluctuance GENITAL: Deferred. NEUROLOGICAL: Normal speech, gross motor function intact, gross sensory function intact. MUSCULOSKELETAL: Neck nontender, full range of motion, back nontender, full range of motion. EXTREMITIES: Nontender, full range of motion. SKIN: Color pink, dry, no turgor, no rash, no lacerations, no abrasions, no contusions. LYMPHATICS: Deferred. Results Laboratory and Microbiology Labs Reviewed?: Yes MDM MDM: Differential diagnosis: Infected hemorrhoid, thrombosed hemorrhoid, hemorrhoid pain, Patient is a 34-year-old female coming in to be evaluated for perirectal pain. On physical exam there is an external hemorrhoid in the 6:00 a.m. region swollen fluctuant. Chaperoned by nurse lidocaine was infused 5 mL of 1% lidocaine were used good anesthesia achieved. Using needle thrombosed was drained purulent discharge using hemostat hemorrhoid was explored continue to drain. CT gut 4-O sutures were placed x4 good hemostasis obtained. Patient will be discharged in stable condition with a diagnosis of infected hemorrhoid. ED Course Orders Procedure Category Date Status Time Lidocaine Hcl 1% 20ml PHA 10/30/24 In Process Vial (Lidocaine Hc 05:00 Current Medications Medications (Trade) Dose Ordered Sig/Steve Route PRN Reason Start Time Stop Time Status Last Admin Dose Admin Lidocaine HCl (Lidocaine HCl 1% 20ml Vial) 20 ml ONCE INJ 10/30/24 05:00 11/29/24 04:59 Vital Signs Date Time Temp Pulse Resp B/P (MAP) Pulse Ox O2 Delivery O2 Flow Rate FiO2 10/30/24 04:36 67 18 115/53 99 Room Air* 0 21 10/30/24 03:49 97.3 76 16 110/68 99 Room Air Incision and Drainage Incision and Drainage : I & D Procedure: no betadine prep Progress External hemorrhoid 60 clot region infected, local anesthesia using lidocaine 1% 5 mL good anesthesia achieved. Needle decompressed purulent discharged evacuated sutures placed for hemostasis. Patient tolerated procedure well. DX & DISP Disposition: Discharge Departure Impression: Primary Impression: Hemorrhoid thrombosis Condition: Stable Scripts Lactulose (Lactulose) 10 Gram/15 Ml Solution 30 ML PO BID for constipation, #500 ML 0 Refills Prov: LANE ZALDIVAR MD 10/30/24 Cephalexin Monohydrate (Keflex) 500 Mg Cap 1 CAP PO TID for 10 Days, #30 CAP 0 Refills Prov: LANE ZALDIVAR MD 10/30/24 Additional Instructions: FOLLOW-UP WITH PRIMARY CARE PROVIDER IN 1 TO 2 DAYS. TAKE MEDICATIONS DIRECTED HERE IN THE EMERGENCY ROOM. OKAY TO CONTINUE HOME MEDICATIONS UNLESS OTHERWISE DISCUSSED DURING YOUR VISIT IN THE EMERGENCY ROOM TODAY. RETURN TO YOUR NEAREST EMERGENCY ROOM IF SYMPTOMS WORSEN OR IF THERE IS NO IMPROVEMENT. CALL 911 IF YOU NEED IMMEDIATE ASSISTANCE. TAKE TYLENOL [id number] NEEDED AND IF NO CONTRAINDICATIONS ARE PRESENT. INCREASE ORAL HYDRATION. A WOUND CULTURE OR URINE CULTURE WAS ORDERED HERE IN THE EMERGENCY ROOM DEPARTMENT PLEASE FOLLOW-UP WITH PRIMARY CARE PROVIDER AND ADVISE THEM TO GET REPEAT PORTS FROM OUR FACILITY. IF YOU HAD ANY FLORA WRAP/SPLINTS THAT WERE APPLIED HERE, PLEASE DO NOT REMOVE THEM UNTIL YOU SEE YOUR PRIMARY CARE OR SPECIALTY. Referrals: Referrals: HELEN CHADWICK MD (PCP) Time of Disposition: 05:[address] Z[address] MD Oct 30, 2024 05:05
== END 2024-10-30 05:17 | disposition home or self-care (01) ==
LOC: EDH 03:48
DX: K64.5 Perianal venous thrombosis (principal); E66.01 Morbid (severe) obesity due to excess calories; I10 Essential (primary) hypertension; Z79.1 Long term (current) use of non-steroidal anti-inflammatories (NSAID); Z79.899 Other long term (current) drug therapy; Z88.1 Allergy status to other antibiotic agents; Z98.890 Other specified postprocedural states
CPT/HCPCS: 46083; 99284

== ENCOUNTER 2025-04-05 11:44 | Emergency (ER) | payer SELFPAY ==
[~2025-04-05] VITALS: Ht 165.1 cm; Wt 123.8 kg
[~2025-04-05 11:44] MED LIST changes: +LACT10SO85 PO
[2025-04-05 12:41] LABS: HCG,QUALITATIVE URINE NEGATIVE (NEGATIVE)
[2025-04-05 12:46] LABS: APPEARANCE,URINE CLOUDY (CLEAR); GLUCOSE, URINE (UA) NEGATIVE (NEGATIVE); LEUKOCYTE ESTERASE ,URINE 500 Leu/uL (NEGATIVE); NITRATE,URINE NEGATIVE (NEGATIVE); OCCULT BLOOD,URINE +- (TRACE) (NEGATIVE); SQUAMOUS EPITHELIAL CELL,UR MANY /HPF (0-2)
[2025-04-05 12:47] LABS: SARS-CoV-2, RNA, NAAT NEGATIVE SARS CoV-2 (NEGATIVE)
[2025-04-05 12:49] LABS: IMMATURE GRANULOCYTE ABSOLUTE 0.01 K/uL (0-1); NUCLEATED RED BLOOD CELLS 0.0 % (0.0-0.19); PLATELET COUNT (AUTO) 174 K/uL (130-400); RED BLOOD CELL COUNT(AUTO) 4.60 MIL/uL (4.00-5.50); RED CELL DISTRIBUTION WIDTH 14.2 % (11.0-15.5); WHITE BLOOD COUNT (AUTO) 5.0 K/uL (4.8-10.8)
[2025-04-05 12:53] LABS: INFLUENZA TYPE A Negative For Type A (NEGATIVE); INFLUENZA TYPE B Negative For Type B (NEGATIVE)
[2025-04-05 12:58] LABS: CREATININE 1.0 mg/dL (0.5-1.0); GLOMERULAR FILTR. RATE CALC 76.0 mL/min (>90); GLUCOSE,RANDOM 95.0 mg/dL (70-105); SODIUM SERUM 140.0 mmol/L (136-145); UREA NITROGEN, BLOOD 12.0 mg/dL (7-18)
[2025-04-05] MEDS ORDERED: KETO10TA2 PO (13:15)
[2025-04-05] MEDS ORDERED: CEPH500B PO (13:15)
--- NOTE | 2025-04-05 13:15 | ERN ---
General Chief Complaint: Headache Stated Complaint: HEADACHE X 3 WEEKS Time Seen by MD: 11:59 History of Present Illness Initial Comments 35-year-old female came in for headache. Patient is a advised that has no concerns. Allergies: Coded Allergies: doxycycline (Unverified Allergy, Unknown, 06/06/21) levofloxacin (Unverified Allergy, Unknown, 06/06/21) Home Meds Active Scripts Lactulose (Lactulose) 10 Gram/15 Ml Solution, 30 ML PO BID for constipation, #500 ML 0 Refills Prov:LANE ZALDIVAR MD 10/30/24 Cephalexin Monohydrate (Keflex) 500 Mg Cap, 1 CAP PO TID for 10 Days, #30 CAP 0 Refills Prov:LANE ZALDIVAR MD 10/30/24 Nitrofurantoin/Nitrofuran Mac (Macrobid) 100 Mg Cap, 1 CAP PO BID for 7 Days, #14 CAP 0 Refills Prov:LAILA MATHEWS MD 12/22/23 Loratadine (Loratadine) 10 Mg Tablet, 10 MG PO DAILY, #7 TAB Prov:KATE CRESPOP 05/07/23 Fluticasone Propionate (Flonase Nasal [place]) 50 Mcg/[place], 50 MCG NASAL DAILY PRN for NASAL CONGESTION for 10 Days, #1 SPRAY Prov:KATE CRESPOP 05/07/23 Cephalexin Monohydrate (Keflex) 500 Mg Cap, 500 MG PO QID for 7 Days, #28 CAP Prov:KATE CRESPO 05/07/23 Sulfamethoxazole/Trimethoprim (Bactrim Ds Tablet) 1 Each Tablet, 1 TAB PO BID for 7 Days, #14 TAB 0 Refills Prov:KATE CRESPOP 04/24/23 Sulfamethoxazole/Trimethoprim (Bactrim Ds Tablet) 1 Each Tablet, 1 TAB PO BID for 7 Days, #14 TAB 0 Refills Prov:JUAN ROJAS MD 03/12/23 Amoxicillin (Amoxicillin) 500 Mg Capsule, 500 MG PO TID for TOOTH INFECTION for 10 Days, #30 CAP 0 Refills Prov:ROSA ULRICH DNP 01/24/23 Cyclobenzaprine HCl (Flexeril) 10 Mg Tab, 10 MG PO TID for 3 Days, #9 TAB Prov:KATE CRESPO V MANAGEMENT AIDE 12/19/22 Cephalexin Monohydrate (Keflex) 500 Mg Cap, 500 MG PO QID for 7 Days, #28 CAP Prov:KATE CRESPO V MANAGEMENT AIDE 12/17/22 Ibuprofen (Motrin/Advil) 800 Mg Tab, 800 MG PO TID, #30 TAB Prov:LAILA MATHEWS MD 08/29/22 Cefuroxime Axetil (Cefuroxime) 500 Mg Tablet, 500 MG PO BID, #20 TAB Prov:LAILA MATHEWS MD 08/29/22 Ibuprofen (Ibuprofen) 600 Mg Tablet, 600 MG PO Q6H PRN for PAIN, #30 TAB Prov:BROOKS OLIVAREZ MD 05/17/22 Albuterol Sulfate (Proair Hfa) 8.5 Gm Hfa.aer.ad, 2 PUFF IH QIDP, #1 INHALER Prov:YOUNG HANSON 05/15/22 D-Methorphan/PE/Acetaminophen (Theraflu Ms Severe Cold Pckt) 1 Each Powd.pack, 1 EACH PO QIDP, #20 PACK Prov:YOUNG HANSON 05/15/22 Butalb/Acetaminophen/Caffeine (Fioricet) 1 Tab Tab, 1 TAB PO QID for headache, #30 TAB Prov:BROOKS OLIVAREZ MD 05/05/22 Lisinopril (Lisinopril) 10 Mg Tablet, 10 MG PO DAILY, #30 TAB Prov:BROOKS OLIVAREZ MD 05/05/22 Cyclobenzaprine HCl (Flexeril) 10 Mg Tab, 10 MG PO BID, #30 TAB Prov:YOUNG HANSON 04/16/22 Naproxen (Naprosyn) 500 Mg Tablet, 500 MG PO BIDPC, #60 TAB Prov:YOUNG HANSON 04/16/22 Naproxen (Naproxen) 500 Mg Tablet.dr, 500 MG PO BIDPC, #30 TAB Prov:BROOKS OLIVAREZ MD 03/27/22 Cyclobenzaprine HCl (Flexeril) 10 Mg Tab, 10 MG PO BID, #30 TAB Prov:YOUNG HANSON 01/31/22 Naproxen (Naprosyn) 500 Mg Tablet, 500 MG PO BIDPC, #60 TAB Prov:YOUNG HANSON 01/31/22 Silver Sulfadiazine (Silvadene) 20 Gm Cream..g., 2 GM TP TID for burn for 5 Days, #33 GR Prov:DEVON GODDARD NP 10/03/21 Acetaminophen with Codeine (Acetaminophen-Cod #3 Tablet) 1 Each Tablet, 1 EACH PO TID for burn for 5 Days, #10 TAB Prov:DEVON GODDARD NP 10/03/21 Mupirocin Calcium (Mupirocin) 15 Gm Cream..g., 15 GM TP TID for 10 Days, #32 GR Prov:DEVON GODDARD NP 10/03/21 Ibuprofen (Ibu) 400 Mg Tablet, 800 MG PO TIDAC, #60 TAB Prov:YOUNG HANSON 06/06/21 Neomy Sulf/Polymyx B Sulf/Hc (Cortisporin Otic Soln) 20 Drop/Ml Otsol, 3 DROP AD QIDP, #10 ML Prov:YOUNG HANSON 06/06/21 Amoxicillin/Potassium Clav (Augmentin 875-125 Tablet) 1 Each Tablet, 1 TAB PO BID for 10 Days, #20 TAB 0 Refills Prov:YOUNG HANSON 06/06/21 Meloxicam (Mobic) 7.5 Mg Tablet, 7.5 MG PO DAILY, #10 TAB 0 Refills Prov:SAMARIA KELLER MD 04/19/21 Cyclobenzaprine HCl (Cyclobenzaprine HCl) 10 Mg Tablet, 10 MG PO TIDP, #20 TAB 0 Refills Prov:SAMARIA KELLER MD 04/19/21 Reported Medications Acetaminophen with Codeine (Tylenol with Codeine #3 Tablet) 1 Each Tablet, 1 TAB PO Q6-8 PRN for PAIN LEVEL 5 TO 10, #20 TAB 07/14/16 Ferrous Sulfate (Iron) 325 Mg Tablet, 325 MG PO DAILY, TAB 06/12/16 Vit W-Ca,Fe,FA(<1 mg) ( Vitamins) 1 Each Tablet, 1 EACH PO DAILY, TAB 06/12/16 Past Medical History Past Medical History: Hypertension Medical History Other: Morbid obese, HEMORRHOIDS Past Surgical History: Family History Family History: Negative Social History Social History: Negative, Lives with family Female( History) History: Not Applicable LMP: Mar 26, 2025 : 4 Para: 4 Aborts: 0 ROS Dictation CONSTITUTIONAL: No chills, no fever, no weakness, no diaphoresis, no malaise. HEAD/FACE: No signs of trauma. EENT: No eye pain, no blurred vision, no tearing, no double vision, no ear pain, no ear discharge, no nose pain, no nasal congestion, no throat pain, no throat swelling, no mouth pain. RESPIRATORY: No cough, no orthopnea, no SOB, no stridor, no wheezing. CARDIOVASCULAR: No chest pain, no edema, no palpitations, no syncope. GASTROINTESTINAL/ABDOMINAL: No abdominal pain, no constipation, no diarrhea, no nausea, no vomiting. GENITOURINARY: No abnormal discharge, no dysuria, no frequent urination, no hematuria. No complaints of pain in the genitals. MUSCULOSKELETAL: No back pain, no gout, no joint pain, no joint swelling, no muscle pain, no muscle stiffness, no neck pain. INTEGUMENTARY: No change in color, no change in hair/nails, no dryness, no lesion, no lumps, no rash. NEUROLOGICAL/PSYCH: No anxiety, not depressed, no emotional problem, no headache, no numbness, no pre-existing deficit, no history of seizures, no tremors, no weakness. HEMATOLOGIC/LYMPHATIC: Not anemic, no history of blood clots, no apparent bleeding, no bruising, glands not swollen. All Systems Negative, Except as Noted. Physical Exam Physical Exam Dictation VITAL SIGNS: Reviewed. GENERAL APPEARANCE: Alert, oriented x3, no acute distress, obese. HEAD AND FACE: Non-traumatic. EYES: PERRL, pink conjunctivas, eyelid no trauma, anterior chamber clear. EARS: Pinnas intact and no signs of trauma or erythema. Ear canals clear and no discharge. TMs no erythema. NOSE: No discharge, no bleeding. OROPHARYNX: Mouth normal, teeth no caries, tongue pink. Pharynx clear, no erythema. Tonsils no exudates, no abscesses noted. Mucous membrane moist. NECK: Supple, non-tender, no thyromegaly, no masses, no JVD, no bruits. BREAST: Deferred. CHEST: No tenderness, no crepitus, no paradoxical movement, no retractions. LUNGS: Clear, well-ventilated, symmetric, no rales, no wheezing, no rhonchi, no stridor, good breath sounds bilaterally. HEART: Regular rate, regular rhythm, no murmur, no gallops. VASCULAR: No peripheral edema. ABDOMEN: Soft, positive bowel sounds, nondistended, no guarding, nontender, no rebound, no masses no hepatomegaly, no splenomegaly, no Fine's sign, no hernias. RECTAL: Deferred. GENITAL: Deferred. NEUROLOGICAL: Normal speech, gross motor function intact, gross sensory function intact. MUSCULOSKELETAL: Neck nontender, full range of motion, back nontender, full range of motion. EXTREMITIES: Nontender, full range of motion. SKIN: Color pink, dry, no turgor, no rash, no lacerations, no abrasions, no contusions. LYMPHATICS: Deferred. Results Laboratory and Microbiology Lab and Micro Result Laboratory Tests Test 04/05/25 12:21 04/05/25 12:25 04/05/25 12:40 Influenza Type A Antigen Negative For Type A Influenza Type B Antigen Negative For Type B SARS-CoV-2, RNA, NAAT NEGATIVE SARS CoV-2 Urine Color LIGHT-YELLOW (YELLOW) Urine Appearance CLOUDY (CLEAR) H Urine pH 5.5 (5.0-8.0) Urine Specific [place] 1.016 (1.001-1.031) Urine Protein NEGATIVE mg/dL (NEGATIVE) Urine Glucose (UA) NEGATIVE mg/dL (NEGATIVE) Urine Ketones NEGATIVE mg/dL (NEGATIVE) Urine Occult Blood +- (TRACE) (NEGATIVE) H Urine Nitrate NEGATIVE (NEGATIVE) Urine Bilirubin NEGATIVE mg/dL (NEGATIVE) Urine Urobilinogen 0.2 mg/dL (0.2-1.0) Urine Leukocyte Esterase 500 [place]/uL (NEGATIVE) H Urine RBC 6-10 /HPF (0-1) H Urine WBC TNTC /HPF (0-1) H Urine Squamous Epithelial Cells MANY /HPF (0-2) Urine Bacteria RARE /HPF (None Seen) Urine HCG, Qualitative NEGATIVE (NEGATIVE) White Blood Count 5.0 K/uL (4.8-10.8) Red Blood Count 4.60 MIL/uL (4.00-5.50) Hemoglobin 11.1 g/dL (12.0-16.0) L Hematocrit 36.1 % (36-48) Mean Corpuscular Volume 78.5 fL (79-99) L Mean Corpuscular Hemoglobin 24.1 pg (27.0-33.0) L Mean Corpuscular Hemoglobin Concent 30.7 g/dL (32.0-36.0) L Red Cell Distribution Width 14.2 % (11.0-15.5) Platelet Count 174 K/uL (130-400) Mean Platelet Volume 11.7 fL (7.5-10.5) H Immature Granulocyte % (Auto) 0.2 % (0-1) Neutrophils (%) (Auto) 69.6 % (40.0-77.0) Lymphocytes (%) (Auto) 18.6 % (21.0-51.0) L Monocytes (%) (Auto) 8.6 % (3.0-13.0) Eosinophils (%) (Auto) 2.4 % (0.0-8.0) Basophils (%) (Auto) 0.6 % (0.0-5.0) Neutrophils # (Auto) 3.5 K/uL (1.8-7.7) Lymphocytes # (Auto) 0.9 K/uL (1.0-4.8) L Monocytes # (Auto) 0.4 K/uL (0.1-1.0) Eosinophils # (Auto) 0.12 K/uL (0.00-0.70) Basophils # (Auto) 0.03 K/uL (0.00-0.20) Absolute Immature Granulocyte (auto 0.01 K/uL (0-1) Nucleated Red Blood Cells 0.0 % (0.0-0.19) Sodium Level 140 mmol/L (136-145) Potassium Level 3.4 mmol/L (3.5-5.1) L Chloride Level 104 mmol/L (101-111) Carbon Dioxide Level 27 mmol/L (21-32) Blood Urea Nitrogen 12 mg/dL (7-18) Creatinine 1.0 mg/dL (0.5-1.0) Glomerular Filtration Rate Calc 76 mL/min (>90) Random Glucose 95 mg/dL (70-105) Total Calcium 8.6 mg/dL (8.5-10.1) MDM MDM: Differential diagnosis: Rationale: Tests considered and ordered secondary to shared decision making include: Previous outside records reviewed: Old ER visits. Risk of complication and/or morbidity or mortality of patient management: None Medications-Per medication reconciliation Need for hospitalization: Patient does not meet criteria for hospitalization. Need for emergency major/minor surgery: No There are no social concerns with this patient. Prescription drug management Prescriptions will include symptomatic care Patient's prior external medical records from other ER visits were reviewed by me as indicated. Prior testing and results from previous visits were reviewed. Prior tests were taken into account with medical decision making and resource utilization, independent historian/historians were used to obtain complete medical history. I independently interpreted the test that were performed, results were reviewed by me and considered findings on radiology if ordered. Medical management and examination interpretation discussions were had by me with other qualified healthcare professionals as indicated for the patient's care. ED Course Orders Procedure Category Date Status Time Cbc With Differential LAB 04/05/25 In Process 12:10 Basic Metabolic Panel LAB 04/05/25 Complete 12:10 Covid Rna Naat LAB 04/05/25 Complete 12:10 Influenza Type A & B, LAB 04/05/25 Complete Rapid 12:10 ,Urine Test LAB 04/05/25 Complete 12:10 Urinalysis LAB 04/05/25 Complete W/Microscopic 12:10 Culture Urine TABITHA 04/05/25 In Process 12:52 Vital Signs Date Time Temp Pulse Resp B/P (MAP) Pulse Ox O2 Delivery O2 Flow Rate FiO2 04/05/25 12:15 97.9 75 20 125/88 99 Room Air* 0 21 04/05/25 12:01 97.9 75 20 125/88 99 DX & DISP Disposition: Discharge Departure Impression: Primary Impression: Sinus headache Additional Impression: UTI (urinary tract infection) Condition: Stable Scripts Ketorolac Tromethamine (Ketorolac Tromethamine) 10 Mg Tablet 1 TAB PO BID PRN for pain for 5 Days, #10 TAB 0 Refills Prov: NORA FOURNIER MD 04/05/25 Cephalexin Monohydrate (Keflex) 500 Mg Cap 500 MG PO BID for 5 Days, #10 CAP Prov: NORA FOURNIER MD 04/05/25 Referrals: HELEN CHADWICK MD (PCP) NORA FOURNIER MD Apr 05, 2025 13:15
[2025-04-05 13:45] VITALS: BP 128/74; PULSE 72; RESP 20; TEMP 97.9; O2SAT 99
== END 2025-04-05 13:46 | disposition home or self-care (01) ==
LOC: EDH 11:44
DX: N39.0 Urinary tract infection, site not specified (principal); R51.9 Headache, unspecified; I10 Essential (primary) hypertension; E66.01 Morbid (severe) obesity due to excess calories; Z79.1 Long term (current) use of non-steroidal anti-inflammatories (NSAID); Z79.899 Other long term (current) drug therapy; Z88.1 Allergy status to other antibiotic agents; Z68.42 Body mass index [BMI] 45.0-49.9, adult; Z20.822 Contact with and (suspected) exposure to COVID-19
CPT/HCPCS: 36415; 80048; 81001; 81025; 85025; 87086; 87186; 87635; 87804; 99283